=== PATIENT | male | born 1955 | race Caucasian/White ===

== ENCOUNTER 2023-01-22 08:38 | Day surgery (SDC) | payer OTHER ==
[2023-01-16 13:45] VITALS: BMI 29.7
--- NOTE | 2023-01-22 07:49 | P.GSHP ---
History of Present Illness H&P Date: 01/22/23 CHIEF COMPLAINT: Colon screen HISTORY OF PRESENT ILLNESS: The patient is a 67-year-old male who presents for colon screen. Lower endoscopy was offered for further evaluation and management. PAST MEDICAL HISTORY: Please see list. PAST SURGICAL HISTORY: Please see list. MEDICATIONS: Please see list. ALLERGIES: Please see list. SOCIAL HISTORY: No illicit drug use FAMILY HISTORY: No reports of Crohn disease or ulcerative colitis. REVIEW OF ORGAN SYSTEMS: CONSTITUTIONAL: No reports of fevers or chills. PHYSICAL EXAM: VITAL SIGNS: Stable GENERAL: Well-developed pleasant in no acute distress. HEENT: No scleral icterus. Extraocular movements grossly intact. Moist buccal mucosa. NECK: Supple without lymphadenopathy. CHEST: Unlabored respirations. Equal bilateral excursions. CARDIOVASCULAR: Regular rate and rhythm. Distal 2+ pulses. ABDOMEN: Soft, nontender, nondistended. MUSCULOSKELETAL: No clubbing, cyanosis, or edema. ASSESSMENT: 1. Colon screen. PLAN: 1. Recommend proceeding with a lower endoscopy Past Medical History Past Medical History: COPD, Hyperlipidemia, Hypertension, Sleep Apnea/CPAP/BIPAP Additional Past Medical History / Comment(s): uses cpap History of Any Multi-Drug Resistant Organisms: None Reported Past Surgical History: Adenoidectomy, Tonsillectomy Additional Past Surgical History / Comment(s): sinus surgery,vasectomy Past Anesthesia/Blood Transfusion Reactions: No Reported Reaction Additional Past Anesthesia/Blood Transfusion Reaction / Comment(s): difficult to wake up. no hx blood transfusion Smoking Status: Former smoker - Past Family History Mother Family Medical History: Cancer Additional Family Medical History / Comment(s): breast Father Family Medical History: Cancer Additional Family Medical History / Comment(s): lung Medications and Allergies Home Medications Medication Instructions Recorded Confirmed Type Ascorbic Acid [Vitamin C] 500 mg PO DAILY 01/16/23 01/19/23 History Aspirin 81 mg PO DAILY 01/16/23 01/19/23 History Atorvastatin Calcium [Lipitor] 80 mg PO DAILY 01/16/23 01/19/23 History [place] 1 dose PO DAILY 01/16/23 01/19/23 History Celecoxib [Celebrex] 100 mg PO BID 01/16/23 01/19/23 History Cholecalciferol [Vitamin D3 (25 25 mcg PO DAILY 01/16/23 01/19/23 History Mcg = 1000 Iu)] Flaxseed 1 dose PO DAILY 01/16/23 01/19/23 History Omeprazole [PriLOSEC] 20 mg PO Q2D@2200 01/16/23 01/19/23 History amLODIPine [Norvasc] 5 mg PO QAM 01/16/23 01/19/23 History Albuterol Inhaler [Ventolin Hfa 1 - 2 puff INHALATION Q6H PRN 01/19/23 01/19/23 History Inhaler] Cetirizine HCl [Zyrtec] 10 mg PO HS 01/19/23 01/19/23 History Fluticasone Nasal [place] [Flonase 1 spray EA NOSTRIL QAM 01/19/23 01/19/23 History Nasal [place]] Mometasone/Formoterol [Dulera 200 2 puff INHALATION BID 01/19/23 01/19/23 History Mcg-5 Mcg Inhaler] Allergies Allergy/AdvReac Type Severity Reaction Status Date / Time No Known Allergies Allergy Verified 01/16/23 13:32
[2023-01-22 09:20] VITALS: RESP 16; TEMP 98.1
[2023-01-22] MEDS ORDERED: LACTATED RINGERS 1,000 ML IV ONE (09:31)
[2023-01-22] MEDS ORDERED: LIDOCAINE 2% INJ 20 MG/ML (2 ML VIAL) ONE (09:53)
[2023-01-22] MEDS ORDERED: PROPOFOL 10 MG/ML 20 ML VIAL IV ONE (09:53)
[2023-01-22 10:34] VITALS: PULSE 78
--- NOTE | 2023-01-22 10:35 | P.PCN ---
Date of Procedure: 01/22/23 Description of Procedure: PREOPERATIVE DIAGNOSIS: Personal history of colon polyps Colonoscopy screening POSTOPERATIVE DIAGNOSIS: Tubular adenoma transverse colon Sigmoid diverticulosis Internal hemorrhoids, grade 2 OPERATION: Colonoscopy to the ileocecal valve and appendiceal orifice, cecum Colonoscopy with hot snare polypectomy SURGEON: Peri Owens MD. ANESTHESIA: MAC. INDICATIONS: The patient is an 67-year-old male who presents family history of malignant colon polyps and personal history of colon polyps. Last colonoscopy 5 years. Benefits and risks were described and informed consent was obtained. DESCRIPTION OF PROCEDURE: The patient had undergone Sutab prep. The patient had been brought into the operating room and laid in the left lateral decubitus position. After adequate intravenous sedation, the rectum was examined with 2% lidocaine jelly. The prostate was unremarkable. External hemorrhoids were encountered. The rectal tone was within normal limits. No lesions were palpated in the rectal vault. An Olympus colonoscope was advanced until the cecum, ileocecal valve and appendiceal orifice were clearly viewed. The prep was fair. Sigmoid diverticulosis was encountered. Colonic polyps were found and removed. No evidence of focal colitis was found. Retroflexion of the scope demonstrated grade 2 internal hemorrhoids without active bleeding or inflammation. The colon was desufflated. The patient had tolerated the procedure well. Withdrawal time was over 6 minutes. FINDINGS: Aronchick preparation quality scale 3 (1-5) Internal hemorrhoids, grade 3 with recent inflammation and bleeding External hemorrhoids, grade 4. No arteriovenous malformations. Sigmoid diverticulosis Removal of 2 polyps: - Snare polypectomy at mid transverse colonx 2 , 5 to 6 mm adenoma No focal colitis. RECOMMENDATIONS: Repeat colonoscopy in 3 years, 2025 Plan - Discharge Summary Discharge Rx Participant: No New Discharge Prescriptions: Continue Celecoxib [Celebrex] 100 mg PO BID amLODIPine [Norvasc] 5 mg PO QAM Atorvastatin Calcium [Lipitor] 80 mg PO DAILY Fluticasone Nasal [place] [Flonase Nasal [place]] 1 spray EA NOSTRIL QAM Cetirizine HCl [Zyrtec] 10 mg PO HS Mometasone/Formoterol [Dulera 200 Mcg-5 Mcg Inhaler] 2 puff INHALATION BID Aspirin 81 mg PO DAILY Omeprazole [PriLOSEC] 20 mg PO Q2D@2200 Cholecalciferol [Vitamin D3 (25 Mcg = 1000 Iu)] 25 mcg PO DAILY Flaxseed 1 dose PO DAILY [place] 1 dose PO DAILY Ascorbic Acid [Vitamin C] 500 mg PO DAILY Albuterol Inhaler [Ventolin Hfa Inhaler] 1 - 2 puff INHALATION Q6H PRN PRN Reason: sob Discharge Medication List Ascorbic Acid [Vitamin C] 500 mg PO DAILY 01/16/23 [History] Aspirin 81 mg PO DAILY 01/16/23 [History] Atorvastatin Calcium [Lipitor] 80 mg PO DAILY 01/16/23 [History] [place] 1 dose PO DAILY 01/16/23 [History] Celecoxib [Celebrex] 100 mg PO BID 01/16/23 [History] Cholecalciferol [Vitamin D3 (25 Mcg = 1000 Iu)] 25 mcg PO DAILY 01/16/23 [History] Flaxseed 1 dose PO DAILY 01/16/23 [History] Omeprazole [PriLOSEC] 20 mg PO Q2D@2200 01/16/23 [History] amLODIPine [Norvasc] 5 mg PO QAM 01/16/23 [History] Albuterol Inhaler [Ventolin Hfa Inhaler] 1 - 2 puff INHALATION Q6H PRN 01/19/23 [History] Cetirizine HCl [Zyrtec] 10 mg PO HS 01/19/23 [History] Fluticasone Nasal [place] [Flonase Nasal [place]] 1 spray EA NOSTRIL QAM 01/19/23 [History] Mometasone/Formoterol [Dulera 200 Mcg-5 Mcg Inhaler] 2 puff INHALATION BID 01/19/23 [History] Follow up Appointment(s)/Referral(s): Peri Owens MD [STAFF PHYSICIAN] - 02/03/23 2:30 pm Patient Instructions/Handouts: Diverticulosis Diet (GEN), Diverticulosis (GEN), Colorectal Polyps (GEN) Activity/Diet/Wound Care/Special Instructions: Repeat colonoscopy, 2025, 3 years Discharge Disposition: HOME SELF-CARE
[2023-01-22 10:50] VITALS: BP 131/72
== END 2023-01-22 11:37 | disposition home or self-care (01) ==
LOC: ORWHC2ENDO 08:38
PROVIDERS: ATTEND Surgery Plastic and Reconstructive Surgery
DX: Z12.11 Encounter for screening for malignant neoplasm of colon (principal); D12.3 Benign neoplasm of transverse colon; K57.30 Diverticulosis of large intestine without perforation or abscess without bleeding; K64.1 Second degree hemorrhoids; Z86.010 Personal history of colon polyps; K64.2 Third degree hemorrhoids; I10 Essential (primary) hypertension; E78.5 Hyperlipidemia, unspecified; J44.9 Chronic obstructive pulmonary disease, unspecified; G47.30 Sleep apnea, unspecified; Z90.89 Acquired absence of other organs; Z87.891 Personal history of nicotine dependence; Z79.899 Other long term (current) drug therapy
CPT/HCPCS: 88305; 45385; J2704; J2001

== ENCOUNTER 2023-02-06 10:47 | Emergency (ER) | payer OTHER ==
[2023-02-06 10:58] VITALS: RESP 18
[2023-02-06 12:05] LABS: Basophils % (A) 1 %; Eosinophils # (A) 0.1 k/uL (0-0.7); Eosinophils % (A) 2 %; HCT 44.8 % (39.0-53.0); HGB 15.4 gm/dL (13.0-17.5); Lymphocytes # (A) 1.1 k/uL (1.0-4.8); Lymphocytes % (A) 18 %; MCH 30.5 pg (25.0-35.0); MCHC 34.3 g/dL (31.0-37.0); MCV 88.9 fL (80.0-100.0); Mean Platelet Volume 7.6; Monocytes # (A) 0.4 k/uL (0-1.0); Monocytes % (A) 6 %; Neutrophils # (A) 4.4 k/uL (1.3-7.7); Neutrophils % (A) 72 %; Platelet Count 210 k/uL (150-450); RBC 5.04 m/uL (4.30-5.90); RDW 12.4 % (11.5-15.5); WBC 6.1 k/uL (3.8-10.6)
[2023-02-06 12:14] LABS: ALT 31 U/L (4-49); AST 27 U/L (17-59); African American GFR (CKD) >90 (>60 ml/min/1.73 sqM); Albumin 4.5 g/dL (3.5-5.0); Alkaline Phosphatase 86 U/L (38-126); Anion Gap 9 mmol/L; Blood Urea Nitrogen 23 mg/dL (9-20); Calcium 9.4 mg/dL (8.4-10.2); Carbon Dioxide 23 mmol/L (22-30); Chloride 105 mmol/L (98-107); Glucose 100 mg/dL (74-99); Non-African American GFR(CKD) >90 (>60 ml/min/1.73 sqM); Potassium 4.1 mmol/L (3.5-5.1); Sodium 137 mmol/L (137-145); Total Bilirubin 0.9 mg/dL (0.2-1.3); Total Protein 7.1 g/dL (6.3-8.2)
[2023-02-06 12:27] LABS: Partial Thromboplastin Time 25.8 sec (22.0-30.0); Prothrombin Time 10.2 sec (9.0-12.0)
--- NOTE | 2023-02-06 12:45 | XR ---
EXAMINATION TYPE: XR chest 2V DATE OF EXAM: 02/06/2023 12:27 PM COMPARISON: None TECHNIQUE: XR chest 2V Frontal and lateral views of the chest. CLINICAL INDICATION:Male, 67 years old with history of htn; FINDINGS: Lungs/Pleura: There is no evidence of pleural effusion, focal consolidation, or pneumothorax. Pulmonary vascularity: Unremarkable. Heart/mediastinum: Cardiomediastinal silhouette is unremarkable. Musculoskeletal: No acute osseous pathology. IMPRESSION: No acute cardiopulmonary disease/process.
[2023-02-06] MEDS ORDERED: MECLIZINE 12.5 MG TAB PO STA (13:26)
[2023-02-06] MEDS ORDERED: SODIUM CHLORIDE 0.9% 1,000 ML IV STA (13:26)
[2023-02-06 14:05] LABS: Appearance,Urine Clear (Clear); Bilirubin,Urine Negative (Negative); Blood,Urine Negative (Negative); Color,Urine Light Yellow; Glucose,Urine (UA) Negative (Negative); Ketones,Urine Negative (Negative); Leukocyte Esterase,Urine Negative (Negative); Nitrite,Urine Negative (Negative); Protein,Urine Negative (Negative); Urobilinogen,Urine <2.0 mg/dL (<2.0)
--- NOTE | 2023-02-06 14:39 | CT ---
EXAMINATION TYPE: CT brain wo con DATE OF EXAM: 02/06/2023 COMPARISON: None HISTORY: 67-year-old male Dizziness, blood pressure elevation when standing. TECHNIQUE: Examination was done in axial plane without intravenous contrast. Coronal and sagittal r econstructions performed. CT DLP: 1177.6 mGycm Automated exposure control for dose reduction was used. FINDINGS: There is no evidence of acute intracranial hemorrhage, acute ischemic changes, mass, mass-effect, or extra-axial fluid collection. There is no effacement of cerebral sulci or basal subarachnoid cister ns. There is no hydrocephalus. There is no midline shift. Shaffer-white matter distinction is preserv ed. Extensive lobulated mucosal thickening throughout the right maxillary sinus. Left maxillary sinus jordyn ws a 1.9 cm mucosal retention cyst. Leftward nasal septal deviation. Mild mucosal thickening ethmoid air cells. Mastoid air cells are well pneumatized. Orbits and globes are intact. IMPRESSION: No acute intracranial abnormality seen. Moderate to severe chronic right maxillary sinus disease. If symptomatic, consider outpatient referral to ENT.
--- NOTE | 2023-02-06 14:49 | CT ---
EXAMINATION TYPE: CT angio head neck DATE OF EXAM: 02/06/2023 COMPARISON: HISTORY: 67-year-old male with dizziness TECHNIQUE: Contiguous axial scanning of the head and neck performed with IV Contrast, patient injecte d with 75 mL of Isovue 370. Coronal/sagittal reconstructions performed. 3-D reconstructions generated on a dedicated independent workstation. CT DLP: 779.3 mGycm Automated exposure control for dose reduction was used. FINDINGS: Neck: Moderate emphysematous change in the visualized upper lungs. Conventional arch vessel branching anatomy. The vertebral arteries are codominant and patent throughout their course. The right common and right internal carotid arteries are widely patent. The left common and left internal carotid arteries are widely patent. Moderate spondylotic change lower cervical spine. NASCET criteria was utilized. Head: Both vertebral and basilar arteries are patent. There is a hypoplastic P1 segment right posterior cer ebral artery with persistent origin right INFORMATION ARCHITECT. Posterior circulation is patent. Scattered mild atherosclerotic calcifications in the carotid siphons. The anterior circulation is patent. No significant stenosis. No aneurysmal change is seen. Dural venous sinuses are patent. IMPRESSION: 1. NECK: Widely patent vertebral and carotid arteries of the neck. Underlying COPD. 2. HEAD: No large vessel intracranial arterial occlusion, significant stenosis, or aneurysmal change is seen. Persistent origin right INFORMATION ARCHITECT is normal anatomic variation.
[2023-02-06 14:54] VITALS: BP 138/92; PULSE 72; TEMP 97.4
--- NOTE | 2023-02-06 15:23 | ED ---
General Adult HPI - General Chief complaint: Recheck/Abnormal Lab/Rx Stated complaint: ELEVATED BP WEAKNESS Time Seen by Provider: 02/06/23 12:28 Source: patient, RN notes reviewed, old records reviewed Mode of arrival: ambulatory Limitations: no limitations - History of Present Illness Initial comments: Patient is a 67-year-old male who presents emergency Department complaining of hypertension as well as lightheadedness/dizziness for the last 3 weeks. Symptoms come and go, mostly on standing. Denies any rhinorrhea, cough, shortness of breath, chest pain. Denies any abdominal pain, nausea, vomiting. No known sick contacts. Patient presents for further evaluation as he contacted his PCP, [facility] who recommended he come to the emergency department for evaluation. Patient is on Norvasc for his blood pressure. No recent change in medications. Patient has no other acute complaints at this time. - Related Data Home Medications Medication Instructions Recorded Confirmed Ascorbic Acid [Vitamin C] 500 mg PO DAILY 01/16/23 01/22/23 Aspirin 81 mg PO DAILY 01/16/23 01/22/23 Atorvastatin Calcium [Lipitor] 80 mg PO DAILY 01/16/23 01/22/23 [place] 1 dose PO DAILY 01/16/23 01/22/23 Celecoxib [Celebrex] 100 mg PO BID 01/16/23 01/22/23 Cholecalciferol [Vitamin D3 (25 25 mcg PO DAILY 01/16/23 01/22/23 Mcg = 1000 Iu)] Flaxseed 1 dose PO DAILY 01/16/23 01/22/23 Omeprazole [PriLOSEC] 20 mg PO Q2D@2200 01/16/23 01/22/23 amLODIPine [Norvasc] 5 mg PO QAM 01/16/23 01/22/23 Albuterol Inhaler [Ventolin Hfa 1 - 2 puff INHALATION Q6H PRN 01/19/23 01/22/23 Inhaler] Cetirizine HCl [Zyrtec] 10 mg PO HS 01/19/23 01/22/23 Fluticasone Nasal [place] [Flonase 1 spray EA NOSTRIL QAM 01/19/23 01/22/23 Nasal [place]] Mometasone/Formoterol [Dulera 200 2 puff INHALATION BID 01/19/23 01/22/23 Mcg-5 Mcg Inhaler] Previous Rx's Medication Instructions Recorded Meclizine [Antivert] 25 mg PO TID PRN 7 Days #21 tab 02/06/23 Allergies Allergy/AdvReac Type Severity Reaction Status Date / Time No Known Allergies Allergy Verified 02/06/23 10:58 Review of Systems ROS Statement: Those systems with pertinent positive or pertinent negative responses have been documented in the HPI. Review of Systems: CONST: Denies fever EYES: Denies blurry vision ENT: Denies nasal congestion C/V: Denies Chest pain RESP: Denies shortness of breath GI: Denies abdominal pain : Denies dysuria SKIN: Denies rash. MSK: Denies joint pain. NEURO: Endorses lightheadedness. ROS Other: All systems not noted in ROS Statement are negative. Past Medical History Past Medical History: COPD, Hyperlipidemia, Hypertension, Sleep Apnea/CPAP/BIPAP Additional Past Medical History / Comment(s): uses cpap History of Any Multi-Drug Resistant Organisms: None Reported Past Surgical History: Adenoidectomy, Tonsillectomy Additional Past Surgical History / Comment(s): sinus surgery,vasectomy Past Anesthesia/Blood Transfusion Reactions: No Reported Reaction Additional Past Anesthesia/Blood Transfusion Reaction / Comment(s): difficult to wake up. no hx blood transfusion Past Psychological History: PTSD Smoking Status: Former smoker Past Alcohol Use History: None Reported Past Drug Use History: Marijuana - Past Family History Mother Family Medical History: Cancer Additional Family Medical History / Comment(s): breast Father Family Medical History: Cancer Additional Family Medical History / Comment(s): lung General Exam - General Exam Comments Initial Comments: General: Appears in no acute distress. HEAD: Normal with no signs of head trauma. EYES: PERRLA, EOMI, conjunctiva normal, no discharge. Pupils are 2 mm and equal bilaterally. ENT: Hearing grossly intact, normal oropharynx. RESPIRATORY: Clear breath sounds bilaterally. No wheezes, rales, or rhonchi. C/V: Regular rate and rhythm. S1 and S2 auscultated, no edema, peripheral pulses 2+ and intact throughout ABD: Abd is soft, nontender, nondistended EXT: Normal range of motion, no obvious deformity SKIN: No rashes or lesions observed on exposed skin. NEURO: Alert and oriented x 4. Cranial nerves II-XII intact. No focal sensory or strength deficits. Normal cerebellar functions as evident by normal finger to nose testing and normal [id number] testing. Absence of dysdiadochokinesia. GCS 15. NIH of 0. Limitations: no limitations Course Vital Signs 02/06/23 02/06/23 02/06/23 10:51 13:15 13:17 Temperature 98.2 F Pulse Rate 82 Pulse Rate [ 76 Sitting] Pulse Rate [ Standing] Pulse Rate [ 71 Supine] Respiratory 18 18 18 Rate Blood Pressure 145/95 Blood Pressure 139/89 [Sitting] Blood Pressure [Standing] Blood Pressure 137/87 [Supine] O2 Sat by Pulse 97 97 96 Oximetry 02/06/23 02/06/23 13:19 14:53 Temperature 97.4 F L Pulse Rate 72 Pulse Rate [ Sitting] Pulse Rate [ 78 Standing] Pulse Rate [ Supine] Respiratory 18 18 Rate Blood Pressure 138/92 Blood Pressure [Sitting] Blood Pressure 151/96 [Standing] Blood Pressure [Supine] O2 Sat by Pulse 98 Oximetry Medical Decision Making - Medical Decision Making Was pt. sent in by a medical professional or institution (, PA, HAND TIRE TRIMMER, urgent care, hospital, or alf...) When possible be specific @ -No Did you speak to anyone other than the patient for history (EMS, parent, family, police, friend...)? What history was obtained from this source @ -No Did you review nursing and triage notes (agree or disagree)? Why? @ -I reviewed and agree with nursing and triage notes Were old charts reviewed (outside hosp., previous admission, EMS record, old EKG, old radiological studies, urgent care reports/EKG's, alf records)? Report findings @ -No old charts were reviewed Differential Diagnosis (chest pain, altered mental status, abdominal pain women, abdominal pain men, vaginal bleeding, weakness, fever, dyspnea, syncope, headache, dizziness, GI bleed, back pain, seizure, CVA, palpatations, mental health, musculoskeletal)? @ -Differential Dizziness: Benign paroxysmal positional Vertigo, Menieres disease, otitis media, acoustic neuroma, vertebrobasilar insufficiency, cerebellar stroke, encephalitis, hypovolemic, arrhythmia, coronary artery syndrome, anemia, this is not meant to be an all-inclusive list EKG interpreted by me (3pts min.). @ -As above X-rays interpreted by me (1pt min.). @ -Chest x-ray shows no obvious acute cardio pulmonary process. CT interpreted by me (1pt min.). @ -CT brain without contrast revealed no obvious acute intracranial process or injury. 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 No obvious acute obstructive process. U/S interpreted by me (1pt. min.). @ -None done What testing was considered but not performed or refused? (CT, X-rays, U/S, labs)? Why? @ -None What meds were considered but not given or refused? Why? @ -None Did you discuss the management of the patient with other professionals (professionals i.e. , PA, HAND TIRE TRIMMER, lab, RT, psych nurse, social services manager, transmission mechanic, teacher, special loan officer, case mgr)? Give summary @ -No Was smoking cessation discussed for >3mins.? @ -No Was critical care preformed (if so, how long)? @ -No Were there social determinants of health that impacted care today? How? (Homelessness, low income, unemployed, alcoholism, drug addiction, transportation, low edu. Level, literacy, decrease access to med. care, detention, rehab)? @ -No Was there de-escalation of care discussed even if they declined (Discuss DNR or withdrawal of care, Hospice)? DNR status @ -No What co-morbidities impacted this encounter? (DM, HTN, Smoking, COPD, CAD, Cancer, CVA, ARF, Chemo, Hep., AIDS, mental health diagnosis, sleep apnea, morbid obesity)? @ -None Was patient admitted / discharged? Hospital course, mention meds given and route, prescriptions, significant lab abnormalities, going to OR and other pertinent info. @ -Based on the patient's presentation and physical exam, presents with hypertension, lightheadedness. Workup was started in triage. We'll add on urinalysis as well as viral swabs and obtain orthostatic vital signs. He was in agreement this plan. Patient's orthostatic vital signs were negative but when he stands up, he is extremely symptomatic. Therefore I did recommend we obtain CT imaging to rule out any atypical causes of his dizziness including intracranial process such as aneurysm and he was in agreement with the plan. Patient's blood pressure is slightly elevated but does not believe this is playing with this time. He was in agreement this plan. He will also be symptomatically treated with meclizine as well as 1 L fluid bolus. Patient's remaining labs were within acceptable limits including a negative urine and viral swabs. Imaging showed no obvious acute process to explain his symptoms. EKG shows no signs of acute ischemia. On reevaluation, patient's symptoms have resolved. He feels improved. He would like to go home. I believe this is reasonable. He'll be discharged home with a prescription for meclizine. He was in agreement this plan. I will provide the patient with a prescription for meclizine. I instructed the patient to follow up with their PCP in the next 1-3 days . I explained that the patient should return to the emergency department if they experience any worsening symptoms. Strict return precautions were discussed with the patient. T he patient expressed understanding of these instructions. I answered all questions that the patient had. The patient was discharged home in good condition with their prescriptions and follow up information. Undiagnosed new problem with uncertain prognosis? @ -No Drug Therapy requiring intensive monitoring for toxicity (Heparin, Nitro, Insulin, Cardizem)? @ -No Were any procedures done? @ -No Diagnosis/symptom? @ -Lightheadedness, dizziness, hypertension Acute, or Chronic, or Acute on Chronic? @ -Acute on chronic Uncomplicated (without systemic symptoms) or Complicated (systemic symptoms)? @ -Uncomplicated Side effects of treatment? @ -No Exacerbation, Progression, or Severe Exacerbation? @ -No Poses a threat to life or bodily function? How? (Chest pain, [place], [place], pneumonia, PE, COPD, DKA, ARF, appy, cholecystitis, CVA, Diverticulitis, Homicidal, Suicidal, threat to staff... and all critical care pts) @ -Unlikely - Lab Data Result diagrams: 02/06/23 11:33 02/06/23 11:33 Lab Results 02/06/23 02/06/23 02/06/23 Range/Units 11:33 11:33 11:33 WBC 6.1 (3.8-10.6) k/uL RBC 5.04 (4.30-5.90) m/uL Hgb 15.4 (13.0-17.5) gm/dL Hct 44.8 (39.0-53.0) % MCV 88.9 (80.0-100.0) fL MCH 30.5 (25.0-35.0) pg MCHC 34.3 (31.0-37.0) g/dL RDW 12.4 (11.5-15.5) % Plt Count 210 (150-450) k/uL MPV 7.6 Neutrophils % 72 % Lymphocytes % 18 % Monocytes % 6 % Eosinophils % 2 % Basophils % 1 % Neutrophils # 4.4 (1.3-7.7) k/uL Lymphocytes # 1.1 (1.0-4.8) k/uL Monocytes # 0.4 (0-1.0) k/uL Eosinophils # 0.1 (0-0.7) k/uL Basophils # 0.0 (0-0.2) k/uL PT 10.2 (9.0-12.0) sec INR 1.0 (<1.2) APTT 25.8 (22.0-30.0) sec Sodium 137 (137-145) mmol/L Potassium 4.1 (3.5-5.1) mmol/L Chloride 105 (98-107) mmol/L Carbon Dioxide 23 (22-30) mmol/L Anion Gap 9 mmol/L BUN 23 H (9-20) mg/dL Creatinine 0.80 (0.66-1.25) mg/dL Est GFR (CKD-EPI)AfAm >90 (>60 ml/min/1.73 sqM) Est GFR (CKD-EPI)NonAf >90 (>60 ml/min/1.73 sqM) Glucose 100 H (74-99) mg/dL Calcium 9.4 (8.4-10.2) mg/dL Total Bilirubin 0.9 (0.2-1.3) mg/dL AST 27 (17-59) U/L ALT 31 (4-49) U/L Alkaline Phosphatase 86 (38-126) U/L Total Protein 7.1 (6.3-8.2) g/dL Albumin 4.5 (3.5-5.0) g/dL Urine Color Urine Appearance (Clear) Urine pH (5.0-8.0) Ur Specific [place] (1.001-1.035) Urine Protein (Negative) Urine Glucose (UA) (Negative) Urine Ketones (Negative) Urine Blood (Negative) Urine Nitrite (Negative) Urine Bilirubin (Negative) Urine Urobilinogen (<2.0) mg/dL Ur Leukocyte Esterase (Negative) Influenza Type A (PCR) (Not Detectd) Influenza Type B (PCR) (Not Detectd) RSV (PCR) (Not Detectd) SARS-CoV-2 (PCR) (Not Detectd) 02/06/23 02/06/23 Range/Units 13:21 13:43 WBC (3.8-10.6) k/uL RBC (4.30-5.90) m/uL Hgb (13.0-17.5) gm/dL Hct (39.0-53.0) % MCV (80.0-100.0) fL MCH (25.0-35.0) pg MCHC (31.0-37.0) g/dL RDW (11.5-15.5) % Plt Count (150-450) k/uL MPV Neutrophils % % Lymphocytes % % Monocytes % % Eosinophils % % Basophils % % Neutrophils # (1.3-7.7) k/uL Lymphocytes # (1.0-4.8) k/uL Monocytes # (0-1.0) k/uL Eosinophils # (0-0.7) k/uL Basophils # (0-0.2) k/uL PT (9.0-12.0) sec INR (<1.2) APTT (22.0-30.0) sec Sodium (137-145) mmol/L Potassium (3.5-5.1) mmol/L Chloride (98-107) mmol/L Carbon Dioxide (22-30) mmol/L Anion Gap mmol/L BUN (9-20) mg/dL Creatinine (0.66-1.25) mg/dL Est GFR (CKD-EPI)AfAm (>60 ml/min/1.73 sqM) Est GFR (CKD-EPI)NonAf (>60 ml/min/1.73 sqM) Glucose (74-99) mg/dL Calcium (8.4-10.2) mg/dL Total Bilirubin (0.2-1.3) mg/dL AST (17-59) U/L ALT (4-49) U/L Alkaline Phosphatase (38-126) U/L Total Protein (6.3-8.2) g/dL Albumin (3.5-5.0) g/dL Urine Color Light Yellow Urine Appearance Clear (Clear) Urine pH 6.0 (5.0-8.0) Ur Specific [place] 1.010 (1.001-1.035) Urine Protein Negative (Negative) Urine Glucose (UA) Negative (Negative) Urine Ketones Negative (Negative) Urine Blood Negative (Negative) Urine Nitrite Negative (Negative) Urine Bilirubin Negative (Negative) Urine Urobilinogen <2.0 (<2.0) mg/dL Ur Leukocyte Esterase Negative (Negative) Influenza Type A (PCR) Not Detected (Not Detectd) Influenza Type B (PCR) Not Detected (Not Detectd) RSV (PCR) Not Detected (Not Detectd) SARS-CoV-2 (PCR) Not Detected (Not Detectd) - EKG Data -: EKG Interpreted by Me EKG Comments: 12-lead Electrocardiogram Interpretation Note EKG was reviewed and interpreted by myself. 12-lead ECG performed at 1108 is interpreted by me as revealing normal sinus rhythm at a rate of 75 beats per minute. [place] is normal. IA interval is 192 ms, QRS duration is 82 ms, QTC is 397 ms.. There were no ST or T wave abnormalities to suggest myocardial ischemia or injury. R wave progression across the precordium was satisfactory. By my interpretation this EKG is non-diagnostic for acute ischemia. Disposition Clinical Impression: Dizzy, Lightheaded, Hypertension Disposition: HOME SELF-CARE Condition: Good Instructions (If sedation given, give patient instructions): Lightheadedness (ED) Prescriptions: Meclizine [Antivert] 25 mg PO TID PRN 7 Days #21 tab PRN Reason: Vertigo Is patient prescribed a controlled substance at d/c from ED?: No Referrals: Mike Dozier DO [Primary Care Provider] - 1-2 days Time of Disposition: 15:11
== END 2023-02-06 15:59 | disposition home or self-care (01) ==
LOC: EC 10:47
DX: R42 Dizziness and giddiness (principal); J32.0 Chronic maxillary sinusitis; J44.9 Chronic obstructive pulmonary disease, unspecified; I10 Essential (primary) hypertension; G47.30 Sleep apnea, unspecified; E78.5 Hyperlipidemia, unspecified; F12.90 Cannabis use, unspecified, uncomplicated; Z87.891 Personal history of nicotine dependence; Z79.82 Long term (current) use of aspirin; Z79.51 Long term (current) use of inhaled steroids; Z79.899 Other long term (current) drug therapy; Z20.822 Contact with and (suspected) exposure to COVID-19
CPT/HCPCS: 36415; 93005; 80053; 85025; 85610; 85730; 81003; 87636; 71046; 70496; 70450; 70498; 99284; 96360; 96361; Q9967

== ENCOUNTER 2023-04-10 08:15 | Day surgery (SDC) | payer OTHER ==
[2023-04-09 11:31] VITALS: BMI 30.3
--- NOTE | 2023-04-10 06:44 | P.GSHP ---
History of Present Illness H&P Date: 04/10/23 CHIEF COMPLAINT: Inguinal hernia, left HISTORY OF PRESENT ILLNESS: The patient is a 67-year-old male who presents with a history of swelling and pain along the left groin for over 3 months. He has noted increased swelling including pain of the area. Now he presents for repair of his inguinal hernia. PAST MEDICAL HISTORY: Please see list. PAST SURGICAL HISTORY: Please see list. MEDICATIONS: Please see list. ALLERGIES: Please see list. SOCIAL HISTORY: No illicit drug use FAMILY HISTORY: No reports of Crohn disease or ulcerative colitis. REVIEW OF ORGAN SYSTEMS: CONSTITUTIONAL: No reports of fevers or chills. No reports of weight loss despite prior attempts. GI: Denies any blood in stools or constipation. PHYSICAL EXAM: VITAL SIGNS: Stable GENERAL: Well-developed pleasant in no acute distress. HEENT: No scleral icterus. Extraocular movements grossly intact. Moist buccal mucosa. NECK: Supple without lymphadenopathy. CHEST: Unlabored respirations. Equal bilateral excursions. CARDIOVASCULAR: Regular rate and rhythm. Distal 2+ pulses. ABDOMEN: Soft, nondistended. No peritoneal signs. Moderate tenderness right lower quadrant MUSCULOSKELETAL: No clubbing, cyanosis, or edema. ASSESSMENT: 1. Inguinal hernia, left PLAN: 1. Recommend proceeding robotic inguinal repair with mesh with possible bilateral approach. 2. Benefits and risks of surgical intervention was discussed including possibility of open technique. 3. DVT prophylaxis. 4. Antibiotic prophylaxis. 5. Non narcotic pain management including abdominal wall block described 6. Blood sugar glucose described. 7. Weight loss management described. 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 CT of lungs yearly History of Any Multi-Drug Resistant Organisms: None Reported Past Surgical History: Adenoidectomy, Tonsillectomy Additional Past Surgical History / Comment(s): sinus surgery,vasectomy,colonoscopies Past Anesthesia/Blood Transfusion Reactions: No Reported Reaction Additional Past Anesthesia/Blood Transfusion Reaction / Comment(s): no hx blood transfusion Smoking Status: Former smoker - Past Family History Mother Family Medical History: Cancer Additional Family Medical History / Comment(s): breast Father Family Medical History: Cancer Additional Family Medical History / Comment(s): lung Medications and Allergies Home Medications Medication Instructions Recorded Confirmed Type Ascorbic Acid [Vitamin C] 500 mg PO DAILY 01/16/23 04/09/23 History Aspirin 81 mg PO DAILY 01/16/23 04/09/23 History Atorvastatin Calcium [Lipitor] 80 mg PO DAILY 01/16/23 04/09/23 History [place] 1 dose PO DAILY 01/16/23 04/09/23 History Celecoxib [Celebrex] 100 mg PO BID 01/16/23 04/09/23 History Cholecalciferol [Vitamin D3 (25 25 mcg PO DAILY 01/16/23 04/09/23 History Mcg = 1000 Iu)] Flaxseed 1 dose PO DAILY 01/16/23 04/09/23 History Omeprazole [PriLOSEC] 20 mg PO Q2D@2200 01/16/23 04/09/23 History amLODIPine [Norvasc] 10 mg PO QAM 01/16/23 04/09/23 History Albuterol Inhaler [Ventolin Hfa 1 - 2 puff INHALATION Q6H PRN 01/19/23 04/09/23 History Inhaler] Cetirizine HCl [Zyrtec] 10 mg PO HS 01/19/23 04/09/23 History Fluticasone Nasal [place] [Flonase 1 spray EA NOSTRIL QAM 01/19/23 04/09/23 History Nasal [place]] Mometasone/Formoterol [Dulera 200 2 puff INHALATION BID 01/19/23 04/09/23 History Mcg-5 Mcg Inhaler] Meclizine [Antivert] 25 mg PO TID PRN 7 Days #21 tab 02/06/23 04/09/23 Rx Allergies Allergy/AdvReac Type Severity Reaction Status Date / Time No Known Allergies Allergy Verified 04/09/23 10:50
[~2023-04-10 08:15] MED LIST: ACETAMINOPHEN TAB 500 MG TAB PO PRN; HEPARIN SODIUM,PORCINE/PF 5,000 UNIT/0.5 ML SYRINGE SQ PRN; HYDROmorphone 0.5 MG/0.5 ML SYRINGE IVP PRN; LACTATED RINGERS 1,000 ML IV SCH; MELOXICAM 7.5 MG TAB PO PRN; MIDAZOLAM 2 MG/2 ML VIAL IV PRN; ONDANSETRON 4 MG/2 ML VIAL IVP PRN; TAMSULOSIN 0.4 MG CAP.ER.24H PO STA
[2023-04-10 09:05] VITALS: TEMP 97
[2023-04-10 09:22] LABS: MCH 30.7 pg (25.0-35.0); MCHC 34.1 g/dL (31.0-37.0); Mean Platelet Volume 7.2; Platelet Count 186 k/uL (150-450); RBC 4.89 m/uL (4.30-5.90); RDW 12.5 % (11.5-15.5); WBC 6.1 k/uL (3.8-10.6)
[2023-04-10] MEDS ORDERED: GLYCOPYRROLATE 0.2 MG/ML 2 ML VIAL ONE (09:24)
[2023-04-10] MEDS ORDERED: SODIUM CHLORIDE 0.9% (PF) 10 ML VIAL ONE (09:24)
[2023-04-10] MEDS ORDERED: PHENYLEPHRINE-0.9% NACL SYG 1,000 MCG/10 ML SYRINGE ONE (09:24)
[2023-04-10] MEDS ORDERED: NEOSTIGMINE 1 MG/ML 10 ML VIAL ONE (09:24)
[2023-04-10] MEDS ORDERED: SUCCINYLCHOLINE CHLORIDE 200 MG/10 ML VIAL IV ONE (09:24)
[2023-04-10] MEDS ORDERED: fentaNYL (PF) 50 MCG/ML 2 ML AMP ONE (09:24)
[2023-04-10] MEDS ORDERED: DEXAMETHASONE SOD PHOSPHATE 4 MG/ML 1 ML VIAL ONE (09:24)
[2023-04-10] MEDS ORDERED: ROCURONIUM 10 MG/ML (5 ML VIAL) IV ONE (09:24)
[2023-04-10] MEDS ORDERED: PROPOFOL 10 MG/ML 20 ML VIAL IV ONE (09:24)
[2023-04-10] MEDS ORDERED: LIDOCAINE 1% INJ 10MG/ML (20 ML MDV) ONE (09:24)
[2023-04-10] MEDS ORDERED: ROPIVACAINE 5 MG/ML 30 ML VIAL ONE (09:24)
[2023-04-10 09:37] LABS: ALT 26 U/L (4-49); AST 28 U/L (17-59); African American GFR (CKD) >90 (>60 ml/min/1.73 sqM); Albumin 4.4 g/dL (3.5-5.0); Alkaline Phosphatase 76 U/L (38-126); Anion Gap 12 mmol/L; Blood Urea Nitrogen 19 mg/dL (9-20); Calcium 9.2 mg/dL (8.4-10.2); Carbon Dioxide 19 mmol/L (22-30); Chloride 109 mmol/L (98-107); Glucose 109 mg/dL (74-99); Non-African American GFR(CKD) >90 (>60 ml/min/1.73 sqM); Potassium 4.2 mmol/L (3.5-5.1); Sodium 140 mmol/L (137-145); Total Bilirubin 0.6 mg/dL (0.2-1.3)
[2023-04-10] MEDS ORDERED: LIDOCAINE 1%-EPI 1:100,000 50 ML VIAL SQ ONE (10:02)
[2023-04-10] MEDS ORDERED: TAMSULOSIN 0.4 MG CAP.ER.24H PO PRN (11:09)
--- NOTE | 2023-04-10 11:15 | P.OP ---
Date of Procedure: 04/10/23 Description of Procedure: SURGEON: PERI OWENS MD PREOPERATIVE DIAGNOSES: 1. Initial left inguinal hernia 2. Hypertensive heart disease 3. Obstructive sleep apnea 4. Hyperlipidemia 5. Coronary artery disease 6. Chronic obstructive pulmonary disease 7. Obesity due to excess calories, BMI 30.5 POSTOPERATIVE DIAGNOSES: 1. Initial left inguinal hernia 2. Hypertensive heart disease 3. Obstructive sleep apnea 4. Hyperlipidemia 5. Coronary artery disease 6. Chronic obstructive pulmonary disease 7. Obesity due to excess calories, BMI 30.5 8. Left inguinal lipoma, 8 cm x 4 cm OPERATION: 1. Robotic-assisted da Ady Xi laparoscopic reduction and repair of initial incarcerated left direct inguinal hernia with mesh, 11.[address] 3. Resection of incarcerated left inguinal lipoma, 8 x 4 cm ANESTHESIA: General with local anesthetic ESTIMATED BLOOD LOSS: 5 mL. SPECIMENS: 1. Left inguinal lipoma and hernia sac COMPLICATIONS: None. FINDINGS: 1. Indirect left inguinal hernia defect, 2 cm extending to the scrotum, initial Nyhus type II 2. Reduced large incarcerated subfascial left inguinal lipoma, 8 x 4 centimeters INDICATIONS: The patient is a 67-year-old gentleman who presents with symptomatic left inguinal hernia. Now presents for definitive surgical intervention. Laparoscopic versus open and robotic approaches were discussed. Benefits and risks including bleeding, infection, injury to the vas deferens as well as sterility and chronic groin pain were reviewed. Placement of mesh was also described. Informed consent was obtained. DESCRIPTION: In the preoperative area, the patient was marked with indelible marker along the inguinal hernia. The patient was brought to the operating room and initially laid in supine position. The abdomen had been prepped and draped in standard sterile fashion. Ioban draping was also placed. Prior to incision, a timeout protocol was confirmed with surgical team regarding patient's name including procedures to be performed and location along the right groin. Initial positioning for the robotic assisted ports were selected whereby 15 cm superior to the target anatomy, 0 degree 5 mm laparoscopic trocar entry was performed at the left upper quadrant. The abdomen was insufflated to 15 mmHg which he had tolerated well. Diagnostic laparoscopy demonstrated no injury to bowel, viscera or mesentery. Next, along the epigastrium, 8 mm robot trocar was placed. An 8-mm robotic trocar was placed under direct visualization at the right upper quadrant. An 8 mm port was placed at the left upper quadrant. All trocars were positioned between 10-cm apart from each other. An accessory trocar 12 mm placed along the left upper abdominal wall, lateral. The [employer] robot was primed, draped, prepared for docking along upper abdomen of the patient. The patient was positioned 14 steep Trendelenburg position I then went to the [employer] console. The assistant secretary was at bedside for exchange of the robot arms and equipment. The contents was evaginated whereby the peritoneum was scored using Endo scissors with cautery. Once completely reduced into the abdominal cavity, the peritoneal sac of the hernia was stripped. The sac with subfascial lipoma was resected and then passed off for further pathological analysis. The size of the hernia defect was 2 cm with intraoperative films obtained. An inguinal lipoma, subfascial 8 x 4 cm was resected. Using a nonabsorbable 2-0 VLOC, the peritoneal defect of the left inguinal hernia site was closed using a pursestring suture. The defect was found to be completely closed with complete reduction of the left indirect inguinal hernia. As an onlay, an 11.[address] mesh by [employer] was cut in half and entered into the abdominal cavity via the 8 mm trocar. The mesh was tacked to the pelvis using nonabsorbable 2-0 VLOC sutures. The robot was undocked from the patient's bedside. I then rescrubbed into the case. Insufflation was released from the abdominal cavity and all instruments were removed from the abdominal cavity. Air within the scrotum and pelvis was relieved. The subcutaneous apparatus and penile implant was functioning at the end of the case. The rest of incisions were reapproximated using 4-0 Monocryl in a running subcuticular fashion. Incisions were cleansed using dilute hydrogen peroxide. Liquid glue was applied to the skin. At the end of the procedure, the needle, sponge and instrument counts had been verified correct by the surgical brace maker. The patient had tolerated the procedure well and was taken to the postanesthesia care unit in stable condition. Plan - Discharge Summary Discharge Rx Participant: No New Discharge Prescriptions: New Simethicone [Gas-X] 125 mg PO AC-TID PRN #20 capsule PRN Reason: Pain Acetaminophen [Tylenol] 325 mg PO Q4H #30 tab Continue Celecoxib [Celebrex] 100 mg PO BID amLODIPine [Norvasc] 10 mg PO QAM Atorvastatin Calcium [Lipitor] 80 mg PO DAILY Fluticasone Nasal [place] [Flonase Nasal [place]] 1 spray EA NOSTRIL QAM Cetirizine HCl [Zyrtec] 10 mg PO HS Mometasone/Formoterol [Dulera 200 Mcg-5 Mcg Inhaler] 2 puff INHALATION BID Aspirin 81 mg PO DAILY Omeprazole [PriLOSEC] 20 mg PO Q2D@2200 Cholecalciferol [Vitamin D3 (25 Mcg = 1000 Iu)] 25 mcg PO DAILY Flaxseed 1 dose PO DAILY [place] 1 dose PO DAILY Ascorbic Acid [Vitamin C] 500 mg PO DAILY Albuterol Inhaler [Ventolin Hfa Inhaler] 1 - 2 puff INHALATION Q6H PRN PRN Reason: sob Meclizine [Antivert] 25 mg PO TID PRN 7 Days #21 tab PRN Reason: Vertigo Discharge Medication List Ascorbic Acid [Vitamin C] 500 mg PO DAILY 01/16/23 [History] Aspirin 81 mg PO DAILY 01/16/23 [History] Atorvastatin Calcium [Lipitor] 80 mg PO DAILY 01/16/23 [History] [place] 1 dose PO DAILY 01/16/23 [History] Celecoxib [Celebrex] 100 mg PO BID 01/16/23 [History] Cholecalciferol [Vitamin D3 (25 Mcg = 1000 Iu)] 25 mcg PO DAILY 01/16/23 [History] Flaxseed 1 dose PO DAILY 01/16/23 [History] Omeprazole [PriLOSEC] 20 mg PO Q2D@2200 01/16/23 [History] amLODIPine [Norvasc] 10 mg PO QAM 01/16/23 [History] Albuterol Inhaler [Ventolin Hfa Inhaler] 1 - 2 puff INHALATION Q6H PRN 01/19/23 [History] Cetirizine HCl [Zyrtec] 10 mg PO HS 01/19/23 [History] Fluticasone Nasal [place] [Flonase Nasal [place]] 1 spray EA NOSTRIL QAM 01/19/23 [History] Mometasone/Formoterol [Dulera 200 Mcg-5 Mcg Inhaler] 2 puff INHALATION BID 01/19/23 [History] Meclizine [Antivert] 25 mg PO TID PRN 7 Days #21 tab 02/06/23 [Rx] Acetaminophen [Tylenol] 325 mg PO Q4H #30 tab 04/10/23 [Rx] Simethicone [Gas-X] 125 mg PO AC-TID PRN #20 capsule 04/10/23 [Rx] Follow up Appointment(s)/Referral(s): Peri Owens MD [STAFF PHYSICIAN] - 04/14/23 Patient Instructions/Handouts: Laparoscopic Herniorrhaphy (IP), Inguinal Hernia Repair (DC) Activity/Diet/Wound Care/Special Instructions: No lifting over 10 pounds in 2 weeks until Apr 24October shower. No bath tub soaks for two weeks until Apr 24 Diet as tolerated. Use simethicone and tylenol scheduled for the next 24-48 hours for best pain relief. Use ice along incisions for today to prevent swelling. Discharge Disposition: HOME SELF-CARE
--- NOTE | 2023-04-10 11:38 | P.ANPRN ---
Procedure Note - Anesthesia - Nerve Block Performed Bilateral Erector Spinae Single Time Out Performed: Yes Date of Procedure: 04/10/23 Procedure Start Time: : Procedure Stop Time: Location of Patient: PreOp Indication: Acute Post-Operative Pain, Requested by Surgeon Sedation Type: Sedate with meaningful contact maintained Preparation: Sterile Prep, Sterile Dressing Position: Prone Catheter: None Needle Types: Facet Needle Gauge: 20 Ultrasound used to visualize needle placement: Yes Ultrasound used to observe medication spread: Yes Injectate: Other (see comment) (Ropivacaine 0.25% 30 ml + decadron 2 mg per side) Blood Aspirated: No Pain Paresthesia on Injection Noted: No Resistance on Injection: Normal Image Stored and Saved: Yes Events: Uneventful and Well Tolerated
[2023-04-10 11:53] VITALS: BP 120/77; RESP 16
[2023-04-10 12:14] VITALS: PULSE 67
== END 2023-04-10 12:50 | disposition home or self-care (01) ==
LOC: OR 08:15
PROVIDERS: ATTEND Surgery Plastic and Reconstructive Surgery
DX: K40.30 Unilateral inguinal hernia, with obstruction, without gangrene, not specified as recurrent (principal); D17.1 Benign lipomatous neoplasm of skin and subcutaneous tissue of trunk; E66.09 Other obesity due to excess calories; E78.5 Hyperlipidemia, unspecified; G47.33 Obstructive sleep apnea (adult) (pediatric); I11.9 Hypertensive heart disease without heart failure; I25.10 Atherosclerotic heart disease of native coronary artery without angina pectoris; J44.9 Chronic obstructive pulmonary disease, unspecified; Z68.30 Body mass index [BMI] 30.0-30.9, adult; Z79.51 Long term (current) use of inhaled steroids; Z79.82 Long term (current) use of aspirin; Z79.899 Other long term (current) drug therapy; Z86.16 Personal history of COVID-19; Z87.891 Personal history of nicotine dependence; Z98.890 Other specified postprocedural states; Z79.1 Long term (current) use of non-steroidal anti-inflammatories (NSAID)
CPT/HCPCS: 49650; S2900; 64999; 80053; 85027; 88304

== ENCOUNTER 2023-04-19 08:26 | Emergency (ER) | payer OTHER, MEDICARE ==
[2023-04-19 08:31] VITALS: RESP 18
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
[2023-04-19 09:54] LABS: Basophils % (A) 1 %; Eosinophils # (A) 0.1 k/uL (0-0.7); Eosinophils % (A) 2 %; HCT 42.7 % (39.0-53.0); HGB 14.6 gm/dL (13.0-17.5); Lymphocytes # (A) 0.8 k/uL (1.0-4.8); Lymphocytes % (A) 11 %; MCH 30.9 pg (25.0-35.0); MCHC 34.1 g/dL (31.0-37.0); MCV 90.6 fL (80.0-100.0); Mean Platelet Volume 7.2; Monocytes # (A) 0.5 k/uL (0-1.0); Monocytes % (A) 7 %; Neutrophils # (A) 5.7 k/uL (1.3-7.7); Neutrophils % (A) 78 %; Platelet Count 188 k/uL (150-450); RBC 4.71 m/uL (4.30-5.90); RDW 12.4 % (11.5-15.5); WBC 7.2 k/uL (3.8-10.6)
--- NOTE | 2023-04-19 10:07 | CT ---
EXAMINATION TYPE: CT abdomen pelvis w con CT DLP: 1687.5 mGycm, Automated exposure control for dose reduction was used. DATE OF EXAM: 04/19/2023 9:23 AM COMPARISON: None. CLINICAL INDICATION:Male, 67 years old with history of Postop pain; post op hernia surgery TECHNIQUE: Axial CT of the abdomen and pelvis. Sagittal and coronal reformats were created on a [employer] workstation. Contrast used:100 mL of Isovue 300 with IV Contrast, (none if empty) Oral contrast used: without Oral Contrast (none if empty) FINDINGS: LOWER CHEST: Mild dependent atelectasis. Newspaper Photojournalist view shows atherosclerotic calcification along the aor tic arch. ABDOMEN LIVER: A 1.6 cm relatively circumscribed hypodensity along the hepatic dome, likely cyst or hemangiom a. Otherwise unremarkable. GALLBLADDER AND BILE DUCTS: Gallbladder appears full but not overtly overdistended. No biliary dilata tion is seen. PANCREAS: Unremarkable. SPLEEN: Normal in size. A few calcified granulomas. ADRENAL GLANDS: Thickening and tiny nodularity, can be seen with hyperplasia versus adenomatoid harris e.. KIDNEYS AND URETERS: Multiple bilateral renal hypodense nodules, many are convincingly cysts but some are not fully characterized; renal ultrasound/CT/MRI could further characterize as clinically warran jesus. A couple of punctate nonobstructing calculi in the right upper pole. No discrete ureteral calcul i or hydronephrosis. Mild bilateral perinephric stranding, may be chronic but if concern for infectio n UA could be obtained. PELVIS BLADDER: Unremarkable REPRODUCTIVE: Mildly prominent prostate, 5 cm diameter, with a few coarse parenchymal calcifications. ABDOMEN & PELVIS STOMACH AND BOWEL: Stomach and small bowel are nondistended, no evidence of bowel obstruction. Thicke diane appearance of the gastric wall could be due to underdistention with pathologic thickening not exc luded from this exam. Appendix is seen in the right lower quadrant and appears within normal limits. Mild/moderate stool throughout colon, without focal abnormality seen. PERITONEUM/RETROPERITONEUM: No evidence of pneumoperitoneum or free fluid. VASCULATURE: Moderate atherosclerotic calcification of the aorta and branches. Aorta is somewhat tort uous without evidence of aneurysm. MUSCULOSKELETAL: No acute osseous abnormality. Moderate diffuse degenerative changes. LYMPH NODES: No gross evidence for lymphadenopathy. SOFT TISSUE/ABDOMINAL WALL: Right inguinal region appears unremarkable. Changes in the left inguinal region likely related to recent hernia repair. There is mild subcutaneous fat stranding about the lef t inguinal canal, likely inflammatory changes, without focal fluid collection seen. Small amount of n onfocal fluid is seen within the inguinal canal which tracks into the scrotum. Small hydrocele and mi ld scrotal wall thickening is suggested. If of concern, could obtain correlation with scrotal ultraso und. IMPRESSION: 1. Changes in the left inguinal region, likely related to recent hernia repair. 2. Otherwise, no acute abnormality demonstrated in the abdomen or pelvis. 3. Other chronic and likely incidental findings, as described above.
[2023-04-19 10:13] LABS: ALT 34 U/L (4-49); AST 23 U/L (17-59); African American GFR (CKD) >90 (>60 ml/min/1.73 sqM); Albumin 4.1 g/dL (3.5-5.0); Alkaline Phosphatase 90 U/L (38-126); Anion Gap 10 mmol/L; Blood Urea Nitrogen 20 mg/dL (9-20); Calcium 9.1 mg/dL (8.4-10.2); Carbon Dioxide 22 mmol/L (22-30); Chloride 107 mmol/L (98-107); Glucose 99 mg/dL (74-99); Non-African American GFR(CKD) >90 (>60 ml/min/1.73 sqM); Potassium 4.2 mmol/L (3.5-5.1); Sodium 139 mmol/L (137-145); Total Bilirubin 0.7 mg/dL (0.2-1.3); Total Protein 6.6 g/dL (6.3-8.2)
[2023-04-19] MEDS ORDERED: KETOROLAC 15 MG/ML 1 ML VIAL IVP STA (10:26)
[2023-04-19] MEDS ORDERED: HYDROmorphone 0.5 MG/0.5 ML SYRINGE IVP STA (10:26)
[2023-04-19 10:42] VITALS: BP 144/102; PULSE 82; TEMP 97.5
== END 2023-04-19 10:53 | disposition home or self-care (01) ==
LOC: EC 08:26
DX: N99.840 Postprocedural hematoma of a genitourinary system organ or structure following a genitourinary system procedure (principal); I25.10 Atherosclerotic heart disease of native coronary artery without angina pectoris; J44.9 Chronic obstructive pulmonary disease, unspecified; I10 Essential (primary) hypertension; E78.5 Hyperlipidemia, unspecified; Z86.16 Personal history of COVID-19; Z87.891 Personal history of nicotine dependence; Z79.82 Long term (current) use of aspirin; Z79.51 Long term (current) use of inhaled steroids; Z79.899 Other long term (current) drug therapy
CPT/HCPCS: 36415; 80053; 85025; 74177; 99284; 96374; 96375; J1885; J1170; Q9967

== ENCOUNTER → 2023-07-08 | Outpatient (CLI) | payer MEDICARE, OTHER ==
--- NOTE | 2023-07-08 18:40 | US ---
EXAMINATION TYPE: US groin LT DATE OF EXAM: 07/08/2023 COMPARISON: 04/19/2023 CLINICAL INDICATION: Male, 67 years old with history of R19.00 INTRA-ABDOMINA AND PELVIC SWELLING,MAS S AND; History of hernia surgery left groin 3 months ago. palpable left groin TECHNIQUE: Grayscale imaging of the left inguinal region. FINDINGS: Scanned within patient's area of concern, left inguinal area, complex anechoic lesion = 5. 1 x 2.8 x 2.6cm, no peristalsing at time of exam and no changes with valsalva maneuver . IMPRESSION: Enlarged area within the left groin is thought to represent fatty inguinal changes on CT on 04/19/2023. Reevaluation with CT pelvis with IV contrast should be considered for confirmation.
== END | disposition home or self-care (01) ==
LOC: RADUSWWP 16:46
PROVIDERS: ATTEND Surgery Plastic and Reconstructive Surgery
DX: R19.04 Left lower quadrant abdominal swelling, mass and lump (principal)

== ENCOUNTER → 2023-07-28 | Outpatient (CLI) | payer OTHER ==
[2023-07-28 13:44] LABS: Partial Thromboplastin Time 25.9 sec (22.0-30.0); Prothrombin Time 10.7 sec (10.0-12.5)
[2023-07-28 16:18] LABS: HCT 46.2 % (39.6-50.0); HGB 15.2 g/dL (13.0-17.0); MCH 29.5 pg (27.0-32.0); MCHC 32.9 g/dL (32.0-37.0); MCV 89.5 FL (80.0-97.0); Mean Platelet Volume 9.6 FL (9.5-12.2); NRBC Per 100 WBC 0 X 10*3/uL (0.00-0.01); Platelet Count 209 X 10*3/uL (140-440); RBC 5.16 X 10*6/uL (4.40-5.60); RDW 12.4 % (11.5-14.5); WBC 5.37 X 10*3/uL (4.50-10.00)
[2023-07-28 23:41] LABS: Prealbumin 26.1 mg/dL (18.0-42.0)
[2023-07-28 23:42] LABS: % Iron Saturation 38.23 (15.00-50.00); ALT 36 U/L (10-49); AST 30 U/L (14-35); Albumin 4.8 g/dL (3.8-4.9); Albumin/Globulin Ratio 2.18 Ratio (1.60-3.17); Alkaline Phosphatase 94 U/L (41-126); Blood Urea Nitrogen 21.6 mg/dL (9.0-27.0); Calcium 10.2 mg/dL (8.7-10.3); Carbon Dioxide 22.4 mmol/L (21.6-31.8); Chloride 104 mmol/L (96-109); Chol/HDL Ratio 3.23 Ratio; Globulin 2.2 g/dL (1.6-3.3); Glucose 112 mg/dL (70-110); Iron 138 UG/DL (65-175); LDL Cholesterol,Calculated 82.5 mg/dL (0.0-131.0); Magnesium 2.2 mg/dL (1.5-2.4); Phosphorus 3.6 mg/dL (2.4-5.1); Potassium 3.9 mmol/L (3.5-5.5); Sodium 143 mmol/L (135-145); Total Bilirubin 0.4 mg/dL (0.3-1.2); Total Iron Binding Capacity 361 UG/DL (228-460)
[2023-07-29 13:13] LABS: Zinc, Serum 98 ug/dL (60-130)
[2023-07-30 10:38] LABS: Vitamin A 60 ug/dL (38-106)
== END | disposition home or self-care (01) ==
LOC: LABWHC1 12:37
PROVIDERS: ATTEND Surgery Plastic and Reconstructive Surgery
DX: E66.01 Morbid (severe) obesity due to excess calories (principal); E89.1 Postprocedural hypoinsulinemia; D50.9 Iron deficiency anemia, unspecified; E44.1 Mild protein-calorie malnutrition; E55.9 Vitamin D deficiency, unspecified; K74.1 Hepatic sclerosis; N19 Unspecified kidney failure
CPT/HCPCS: 36415; 80053; 80061; 82306; 82525; 82607; 82728; 82746; 83036; 83540; 83550; 83735; 83970; 84100; 84134; 84255; 84425; 84443; 84590; 84630; 85027; 85610; 85730